=== PATIENT | male | born 1950 | race African-American/Black ===

== ENCOUNTER 2019-03-21 06:52 | Emergency (ER) | payer OTHER ==
[~2019-03-21] VITALS: Ht 182.9 cm; Wt 95.0 kg
[2019-03-21 09:04] LABS: EOSINOPHILS % 2.9 % (0.0-5.0); HEMATOCRIT. 32.3 % (42.0-52.0); HEMOGLOBIN. 11.1 g/dL (14.0-18.0); LYMPHOCYTES % 15.6 % (20.0-50.0); MEAN CORPUSCULAR HEMOGLOBIN 31.4 pg (28.0-32.0); MEAN CORPUSCULAR VOLUME 91.4 fL (80.0-94.0); MEAN PLATELET VOLUME 6.3 fl (7.4-10.4); NEUTROPHILS % 73.5 % (40.0-76.0); PLATELET 333 x1000/uL (130-400); RED BLOOD CELL COUNT 3.54 mill/uL (4.7-6.1); RED CELL DISTRIBUTION WIDTH 15.2 % (11.6-14.6)
[2019-03-21 09:10] LABS: CHLORIDE 111 mEq/L (98-107)
[2019-03-21 09:14] LABS: ETHANOL BLOOD < 10 mg/dL
[2019-03-21] MEDS ORDERED: DEXTROSE 50% WATER 50ML SYRINGE IV ONE ×2 (09:26→09:30)
[2019-03-21 13:05] VITALS: BP 127/70
== END 2019-03-21 13:20 | disposition short-term general hospital (02) ==
LOC: ER 06:52 → CANBEDREQ 21:12
DX: G45.9 Transient cerebral ischemic attack, unspecified (principal); R47.81 Slurred speech; R53.1 Weakness; R29.810 Facial weakness; E11.9 Type 2 diabetes mellitus without complications; Z85.118 Personal history of other malignant neoplasm of bronchus and lung; Z85.841 Personal history of malignant neoplasm of brain
CPT/HCPCS: 36415; 71045; 80320; 82962; 84484; 96374; 99284; 99285; G0480